=== PATIENT | male | born 1955 | race Caucasian/White ===

== ENCOUNTER → 2017-04-09 | Outpatient (REF) ==
--- NOTE | 2017-04-09 10:28 | REP ---
Left ankle four views: There are no comparisons. There are accessory ossicles distal to the tip of the fibula. There is a calcification posterior to the talus, likely an os trigonum. Mineralization and joint spaces are normal. The mortise is symmetric. There is no acute fracture or dislocation. Impression: Accessory ossicles. Otherwise, negative left ankle. Signed by Emeterio Bush MD 04/09/2017 10:19 A
--- NOTE | 2017-04-09 10:29 | REP ---
LUMBOSACRAL SPINE: AP and lateral views of the lumbosacral spine performed with three total views obtained. There is no compression fracture or malalignment with normal lumbar lordosis. There is mild diffuse spurring. There is slight disc space narrowing and subchondral sclerosis at L4-5. There is moderate narrowing with subchondral sclerosis and vacuum at L5-S1. There is sclerosis at the posterior facet joints. The posterior elements are intact. Vascular calcifications are seen in the pelvis. IMPRESSION: Degenerative changes as above. Signed by Emeterio No MD 04/09/2017 05:08 P
== END ==
LOC: M SMT 09:52
PROVIDERS: ATTEND Internal Medicine
DX: Z02.9 Encounter for administrative examinations, unspecified (principal)

== ENCOUNTER 2019-08-27 18:39 | Inpatient (IN) | payer MEDICARE, OTHER ==
[~2019-08-27] VITALS: Ht 172.7 cm; Wt 65.7 kg
[2019-08-27] MEDS ORDERED: ATOR40TA75 (18:59)
[2019-08-27] MEDS ORDERED: LISI-1046 (18:59)
[2019-08-27] MEDS ORDERED: METO1TAB7 (18:59)
[2019-08-27] MEDS ORDERED: CLOP75TA2 (18:59)
[2019-08-27] MEDS ORDERED: GABA-843 (18:59)
[2019-08-27] MEDS ORDERED: ATORVASTATIN 20 MG TAB PO SCH (21:00)
[2019-08-27 21:03] LABS: BASO # 0.1 10^3/uL (0.0-0.2); BASO % 1.2 % (0.0-1.0); EOS # 1.3 10^3/uL (0.0-0.5); EOS % 16.4 % (0.0-3.0); HEMATOCRIT 39.6 % (42.0-52.0); HEMOGLOBIN 12.7 g/dl (13.5-17.5); LYMPH # 1.5 10^3/uL (1.5-5.0); LYMPH % 18.5 % (24.0-44.0); MEAN CORPUSCULAR HEMOGLOBIN 29.7 pg (27.0-33.0); MEAN CORPUSCULAR HGB CONC 32.1 g/dl (32.0-36.5); MEAN CORPUSCULAR VOLUME 92.7 fl (80.0-96.0); MONO # 0.6 10^3/uL (0.0-0.8); MONO % 7.5 % (0.0-5.0); NEUTROPHILS # 4.6 10^3/uL (1.5-8.5); PLATELET COUNT, AUTOMATED 220 10^3/uL (150-450); RED BLOOD COUNT 4.27 10^6/uL (4.30-6.10); WHITE BLOOD COUNT 8.1 10^3/uL (4.0-10.0)
[2019-08-27] MEDS ORDERED: ISOVUE-370 76% 100ML VIAL (Q9967) As Ordered ONE (21:10)
[2019-08-27 21:20] LABS: INR 1.04; PARTIAL THROMBOPLASTIN TIME 33.5 SECONDS (25.0-38.4); PROTHROMBIN TIME 13.3 SECONDS (11.8-14.0)
--- NOTE | 2019-08-27 22:59 | REPVR ---
PROCEDURE INFORMATION: Exam: CTA Left Lower Extremity With Contrast Exam date and time: 08/27/2019 9:48 PM Age: 64 years old Clinical indication: Other: Blue toes; Additional info: B/l blue toes ascending up foot. Assess for prox occlusion TECHNIQUE: Imaging protocol: Computed tomographic angiography of the Left lower extremity with intravenous contrast. 3D rendering: MIP and/or 3D reconstructed images were created by the technologist. Radiation optimization: All CT scans at this facility use at least one of these dose optimization techniques: automated exposure control; mA and/or kV adjustment per patient size (includes targeted exams where dose is matched to clinical indication); or iterative reconstruction. Contrast material: ISOVUE 370; Contrast volume: 100 ml; Contrast route: IV; COMPARISON: No relevant prior studies available. FINDINGS: Right lower extremity vasculature: Moderate calcified and noncalcified atherosclerosis in the infrarenal abdominal aorta, common, internal and external iliac arteries with no high-grade narrowing or occlusion. Mild atherosclerosis within the deep femoral artery. Mild scattered atherosclerotic plaque within the superficial femoral artery, popliteal artery, and 3 vessel runoff. The anterior and posterior tibial arteries are patent through the ankle. The peroneal artery loses opacification in the distal lower extremity from slow flow or thrombus. Left lower extremity vasculature: Moderate calcified and noncalcified atherosclerosis of the infrarenal abdominal aorta, common, internal and external iliac arteries with no high-grade narrowing or occlusion. Atherosclerotic narrowing of the origin of the superficial femoral artery, although with only mild luminal narrowing. Mild atherosclerosis along the deep femoral artery. Mild scattered atherosclerotic calcifications along the superficial femoral and popliteal arteries with multiple areas of mild narrowing. The anterior and posterior tibial arteries are patent through the ankle. There is loss of enhancement of the peroneal artery in the distal lower extremity from slow flow or thrombus. Stomach and bowel: Colonic diverticulosis without evidence of diverticulitis. Bladder: Large, nodular prostate measuring up to 5.7 cm diameter with nodular excrescence superiorly measuring 3 cm distorting the inferior wall of the urinary bladder. Bones/joints: No acute fracture. No dislocation. Soft tissues: Unremarkable. IMPRESSION: Loss of opacification of the distal aspect of the bilateral peroneal arteries from slow flow or thrombus. Otherwise, there is no high-grade narrowing or occlusion of either lower extremity major arterial vessels with [id number] atherosclerotic disease as described. Notes that the vessels within the feet are poorly visualized given imaging technique required for proximal occlusion evaluation. Large, nodular prostate impressing upon the urinary bladder. Correlate with exam and age-appropriate prostate cancer screening. Electronically signed by: Hemanth Medeiros On 08/27/2019 22:58:54 PM
[2019-08-27] MEDS ORDERED: HEPARIN DRIP 25,000 UNITS in IV 1 EA IV SCH (23:42)
[2019-08-27] MEDS ORDERED: HEPARIN SOD (PORCINE) 5000 UNITS/ML VIAL IV ONE (23:45)
[2019-08-28] MEDS ORDERED: GABA-843 PO (00:32)
[2019-08-28] MEDS ORDERED: METO1TAB7 PO (00:32)
[2019-08-28] MEDS ORDERED: CLOP75TA2 PO (00:32)
[2019-08-28] MEDS ORDERED: ATOR40TA75 PO (00:32)
[2019-08-28] MEDS ORDERED: MAALOX 30 ML SUSP *UDC PO PRN (01:15)
[2019-08-28] MEDS ORDERED: MOM 30ML SUSPENSION UDC PO PRN (01:15)
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
[2019-08-28] MEDS: GABAPENTIN 300 MG CAP PO SCH ×2 (02:18→20:32)
[2019-08-28] MEDS: ACETAMINOPHEN TAB 650MG DOSE (2X325MG) PO PRN ×3 (02:22→15:43)
[2019-08-28] MEDS ORDERED: GABAPENTIN 100 MG CAP PO ONE (03:30)
[2019-08-28] MEDS ORDERED: IBUPROFEN 400 MG TAB PO ONE (03:30)
[2019-08-28 04:05] LABS: HEMATOCRIT 39.6 % (42.0-52.0); HEMOGLOBIN 12.7 g/dl (13.5-17.5); MEAN CORPUSCULAR HEMOGLOBIN 29.6 pg (27.0-33.0); MEAN CORPUSCULAR HGB CONC 32.1 g/dl (32.0-36.5); MEAN CORPUSCULAR VOLUME 92.3 fl (80.0-96.0); PLATELET COUNT, AUTOMATED 220 10^3/uL (150-450); RED BLOOD COUNT 4.29 10^6/uL (4.30-6.10)
[2019-08-28 04:24] LABS: BLOOD UREA NITROGEN 13 MG/DL (7-18); CALCIUM LEVEL 8.1 MG/DL (8.8-10.2); CARBON DIOXIDE LEVEL 23 MEQ/L (21-32); CHLORIDE LEVEL 111 MEQ/L (98-107); CREATININE FOR GFR 1.01 MG/DL (0.70-1.30); GLOMERULAR FILTRATION RATE > 60.0 (>49); GLUCOSE, FASTING 102 MG/DL (70-100); POTASSIUM SERUM 3.9 MEQ/L (3.5-5.1); SODIUM LEVEL 141 MEQ/L (136-145)
[2019-08-28 04:32] VITALS: BP 178/90
[2019-08-28] MEDS ORDERED: HEPARIN SOD (PORCINE) 5000 UNITS/ML VIAL IV PRN (06:15)
[2019-08-28 06:39] LABS: HEMATOCRIT 38.1 % (42.0-52.0); HEMOGLOBIN 12.6 g/dl (13.5-17.5); MEAN CORPUSCULAR HEMOGLOBIN 30.1 pg (27.0-33.0); MEAN CORPUSCULAR HGB CONC 33.1 g/dl (32.0-36.5); MEAN CORPUSCULAR VOLUME 91.1 fl (80.0-96.0); PLATELET COUNT, AUTOMATED 216 10^3/uL (150-450); RED BLOOD COUNT 4.18 10^6/uL (4.30-6.10); WHITE BLOOD COUNT 8.6 10^3/uL (4.0-10.0)
[2019-08-28 07:50] LABS: FERRITIN 140 NG/ML (26-388); IRON (FE) 87 UG/DL (65-175); TOTAL IRON BINDING CAPACITY 281 UG/DL (250-450)
[2019-08-28 08:00] VITALS: BP 120/72
[2019-08-28] MEDS ORDERED: ISOVUE-370 76% 100ML VIAL (Q9967) As Ordered ONE (08:37)
[2019-08-28 09:23] LABS: FOLATE 13.7 NG/ML (>5.4); VITAMIN B12 LEVEL 284 PG/ML (247-911)
[2019-08-28] MEDS: CLOPIDOGREL 75 MG TAB PO SCH (10:00)
[2019-08-28] MEDS: METOPROLOL SUCC (TopROL XL) 50MG **XL** TAB PO SCH (10:00)
--- NOTE | 2019-08-28 10:08 | REP ---
CT thoracic aortic and abdominal aortic angiogram: With IV contrast. History: Assess thoracoabdominal aorta. Question source of emboli. Blue toe syndrome. Comparison studies: No comparison study. Contrast dose: 100 ML of Isovue [address] technique: Helical scanning is acquired and overlapping 1.5 mm and contiguous 3 mm axial images are reformatted. In addition, maximum intensity projection and multiplanar re-formation images are generated in sagittal and coronal imaging projections. CT pulmonary angiographic findings: There is some linear plate-like atelectasis in the right lower lobe versus linear fibrosis. No pulmonary nodule or infiltrate is seen. No lung mass lesion is observed. There are small subpleural nodules along the major fissure in the right lower lobe infrahilar region on the right which have a benign appearance. There are scattered mediastinal and hilar lymph nodes which are not enlarged. There is a cyst in the left lobe of the liver. An accessory splenule is seen. No adrenal lesion is observed. No pleural or pericardial effusion is seen. There is no filling defect in the pulmonary arterial tree to suggest pulmonary embolus. There is irregular atherosclerotic plaquing in the mid descending thoracic aorta along its lateral margin. No aneurysm or dissection is seen. Irregular atherosclerotic plaquing is seen in the infrarenal abdominal aorta as well with mild luminal narrowing and luminal irregularity. 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 And a singular nonstenotic left renal artery is noted. Celiac, superior mesenteric artery origins are unremarkable. Impression: No CT evidence of pulmonary embolus. No evidence of aortic dissection or aneurysm. There are areas of fairly irregular plaquing however in the mid descending thoracic aorta and in the infrarenal abdominal aorta. Electronically Signed by Nain Herrmann MD 08/28/2019 10:42 A
[2019-08-28] MEDS: NS 1,000 ML IV SCH ×2 (10:26→20:32)
[2019-08-28] MEDS ORDERED: ASPIRIN 81 MG ENTERIC TAB PO ONE (11:45)
[2019-08-28 12:00] VITALS: BP 144/86
[2019-08-28] MEDS ORDERED: PERCOCET 5MG/325MG TAB PO PRN (12:00)
[2019-08-28] MEDS ORDERED: ATORVASTATIN 20 MG TAB PO ONE (12:00)
[2019-08-28 16:00] VITALS: BP 152/80
[2019-08-28 20:00] VITALS: BP 146/89
[2019-08-28] MEDS ORDERED: ATORVASTATIN 20 MG TAB PO SCH (21:00)
--- NOTE | 2019-08-28 22:34 | ECHO ---
DATE OF PROCEDURE: 08/28/2019 REFERRING PHYSICIAN: Dr. Freya Hinds INDICATION: Systemic emboli. HEIGHT: 173 cm WEIGHT: 68 kg 2D MEASUREMENTS: Aortic annulus: 2.3 cm Aortic root: 3.3 cm Left atrium: 3.2 cm Ventricular septum: 1.06 cm Posterior wall: 1.09 cm Left ventricle diastole: 4.2 cm DOPPLER MEASUREMENTS: Aortic valve velocity: 156 cm/s LVOT velocity: 84.9 cm/s LVOT VTI: 19.1 cm No aortic regurgitation. Very mild mitral regurgitation. Mitral E velocity: 76.7 cm/s Mitral A velocity: 55.3 cm/s Mitral deceleration time: 223 ms Very mild tricuspid regurgitation. No pulmonic regurgitation. MITRAL ANNULAR TISSUE DOPPLER: Mitral annular tissue Doppler was not valid because the degree of difference in angle alignment of the Doppler with the direction and movement of the annular tissue plane was more than 6 degrees. DESCRIPTION: Rhythm was sinus. Image quality was fair. Frequent premature ventricular contractions (PVCs) were observed. No pericardial effusion. CONCLUSIONS: 1. Normal left ventricle internal dimensions and wall thickness. Normal regional left ventricular (LV) wall motion and wall thickening. Normal LV systolic function. Normal LV diastolic function. 2. Moderate aortic valve sclerosis of a 3-cusp aortic valve. No aortic regurgitation or stenosis. 3. Otherwise normal appearing echocardiogram Doppler findings.
[2019-08-29] VITALS: BP 151/85
[2019-08-29 04:00] VITALS: BP 144/84
[2019-08-29] MEDS: ACETAMINOPHEN TAB 650MG DOSE (2X325MG) PO PRN (04:56)
[2019-08-29 05:59] LABS: HEMATOCRIT 35.7 % (42.0-52.0); HEMOGLOBIN 11.7 g/dl (13.5-17.5); MEAN CORPUSCULAR HEMOGLOBIN 30.4 pg (27.0-33.0); MEAN CORPUSCULAR HGB CONC 32.8 g/dl (32.0-36.5); MEAN CORPUSCULAR VOLUME 92.7 fl (80.0-96.0); PLATELET COUNT, AUTOMATED 184 10^3/uL (150-450); RED BLOOD COUNT 3.85 10^6/uL (4.30-6.10); WHITE BLOOD COUNT 8.5 10^3/uL (4.0-10.0)
[2019-08-29 06:29] LABS: BLOOD UREA NITROGEN 11 MG/DL (7-18); CALCIUM LEVEL 7.9 MG/DL (8.8-10.2); CARBON DIOXIDE LEVEL 24 MEQ/L (21-32); CHLORIDE LEVEL 114 MEQ/L (98-107); CREATININE FOR GFR 1.02 MG/DL (0.70-1.30); GLOMERULAR FILTRATION RATE > 60.0 (>49); GLUCOSE, FASTING 111 MG/DL (70-100); SODIUM LEVEL 144 MEQ/L (136-145)
[2019-08-29 08:00] VITALS: BP 126/90
[2019-08-29 08:53] VITALS: BP 126/90
[2019-08-29] MEDS: CLOPIDOGREL 75 MG TAB PO SCH (08:53)
[2019-08-29] MEDS: METOPROLOL SUCC (TopROL XL) 50MG **XL** TAB PO SCH (08:53)
[2019-08-29] MEDS ORDERED: ASPIRIN 81 MG ENTERIC TAB PO SCH (09:00)
[2019-08-29] MEDS ORDERED: ATOR1TAB21 PO (12:36)
[2019-08-29] MEDS ORDERED: ASPI81TAEC PO (12:36)
[2019-08-29] MEDS ORDERED: CYANOCOBALAMIN 1,000 MCG/ML VIAL (J3420) IM ONE (14:00)
--- NOTE | 2019-08-30 20:57 | DS.PDOC ---
Discharge Summary General Date of Admission Aug 28, 2019 at 00:31 Date of Discharge 08/29/19 Attending Physician: ONEIL ADAMS MD Discharge Summary PROCEDURES PERFORMED DURING STAY: None. ADMITTING DIAGNOSES: 1. Blue toe syndrome. DISCHARGE DIAGNOSES: 1. Blue toe syndrome. COMPLICATIONS/CHIEF COMPLAINT: Blue Toe Syndrome Of Both Lower Extremities. HISTORY OF PRESENT ILLNESS: 64-year-old male with past medical history of coronary artery disease status post AL one month ago requiring 2 coronary stents, presents with progressive discoloration of his toes, which was likely due to atherosclerotic emboli. He underwent CTA of the chest and abdomen which showed irregular cholesterol plaques in the descending thoracic aorta and proximal abdominal aorta. Patient was managed medically with continuation of aspirin, Plavix, and increasing dose of his statin along with pain control. He continued to have improvement discoloration and pain in the toes, case discussed with vascular surgery over the phone who recommended conservative management and if patient's symptoms worsen that require surgical intervention, then the patient should follow up with [facility]. Patient is clinically, he would be stable for discharge and outpatient follow-up. HOSPITAL COURSE: As above. DISCHARGE MEDICATIONS: Please see below. ALLERGIES: Please see below. PHYSICAL EXAMINATION: VITAL SIGNS: Please see below. GENERAL: No distress HEENT: Normocephalic, atraumatic, moist mucous membranes NECK: Supple CARDIOVASCULAR EXAMINATION: S1, S2, no murmurs RESPIRATORY EXAMINATION: Distant, poor air movement, no wheezing ABDOMINAL EXAMINATION: Soft, nontender, nondistended, positive bowel sounds EXTREMITIES: Range of motion intact SKIN: Blue discoloration of toes in both feet with tenderness to palpation NEUROLOGICAL EXAMINATION: Alert and oriented 3, no focal deficits PSYCHIATRIC EXAMINATION: Calm and cooperative LABORATORY DATA: Please see below. IMAGING: CTA showing irregular atherosclerotic plaques and descending thoracic aorta and proximal abdominal aorta PROGNOSIS: Fair ACTIVITY: As tolerated. DIET: Cardiac DISCHARGE PLAN: Follow-up with PCP and nut picker in 1-2 weeks DISPOSITION: 01 Home, Self-Care. DISCHARGE INSTRUCTIONS: 1. As above. DISCHARGE CONDITION: Stable. TIME SPENT ON DISCHARGE: Greater than 33 minutes. Vital Signs/I&Os Vital Signs Date Time Temp Pulse Resp B/P (MAP) Pulse Ox O2 Delivery O2 Flow Rate FiO2 08/29/19 08:53 71 126/90 08/29/19 08:00 98.4 21 95 Room Air Discharge Medications Scheduled Aspirin (Aspirin EC) 81 Mg Tablet.dr, 81 MG PO DAILY Atorvastatin Calcium (Atorvastatin Calcium) 20 Mg Tablet, 80 MG PO QHS Clopidogrel Bisulfate (Clopidogrel) 75 Mg Tablet, 75 MG PO DAILY, (Reported) Gabapentin (Gabapentin) 300 Mg Capsule, 300 MG PO QHS, (Reported) HAS NOT STARTED YET Metoprolol Succinate (Metoprolol Succinate) 50 Mg Tab.er.24h, 50 MG PO DAILY, (Reported) Allergies Coded Allergies: No Known Allergies (Unverified , 08/27/19) ONEIL ADAMS MD Aug 30, 2019 20:57
== END 2019-08-29 15:05 | disposition home or self-care (01) | DRG 301 ==
LOC: M ED 18:39 → M ED INP 08-28 00:31 → ENRESERV 08-28 04:06 → M PCU 08-28 04:32
PROVIDERS: ADMIT Internal Medicine; ATTEND Internal Medicine
DX: I75.023 Atheroembolism of bilateral lower extremities (principal); I25.10 Atherosclerotic heart disease of native coronary artery without angina pectoris; I25.2 Old myocardial infarction; Z79.82 Long term (current) use of aspirin; Z79.899 Other long term (current) drug therapy; Z87.891 Personal history of nicotine dependence; N40.0 Benign prostatic hyperplasia without lower urinary tract symptoms; Z95.2 Presence of prosthetic heart valve; D64.9 Anemia, unspecified

== ENCOUNTER 2025-06-07 11:40 | Observation (INO) | payer MEDICAID, MEDICARE, OTHER ==
[~2025-06-07] VITALS: Ht 172.7 cm; Wt 58.2 kg
[~2025-06-07 11:40] MED LIST: ASPI-569 PO; ATOR1TAB21 PO; ATOR40TA75; ATOR40TA75 PO; CLOP75TA2; CLOP75TA2 PO; GABA-1172; GABA-1172 PO; LISI2.5T9; METO1TAB7; METO1TAB7 PO
[2025-06-07] MEDS ORDERED: DILT120C31 PO (12:05)
[2025-06-07] MEDS ORDERED: ELIQ5TAB PO (12:05)
[2025-06-07] MEDS ORDERED: LEVO1TAB40 (12:05)
[2025-06-07] MEDS ORDERED: BENZ-18 PO (12:05)
[2025-06-07 13:10] LABS: BASO # 0.1 10^3/uL (0.0-0.2); BASO % 0.5 % (0.0-1.0); EOS # 0.4 10^3/uL (0.0-0.5); EOS % 2.9 % (0.0-3.0); LYMPH # 0.9 10^3/uL (1.5-5.0); LYMPH % 6.8 % (24.0-44.0); MONO # 1.0 10^3/uL (0.0-0.8); MONO % 7.1 % (2.0-8.0); NEUTROPHILS # 10.9 10^3/uL (1.5-8.5); NEUTROPHILS % 82.0 % (36.0-66.0); PLATELET COUNT, AUTOMATED 562 10^3/uL (150-450)
[2025-06-07] MEDS ORDERED: MED REC IN PROGRESS XX SCH (13:35)
[2025-06-07 13:45] LABS: INR 1.08
[2025-06-07 14:04] LABS: ALT/SGPT 34 U/L (7.0-40); AST/SGOT 33 U/L (<34); CALCIUM LEVEL 8.3 MG/DL (8.3-10.6); CARBON DIOXIDE LEVEL 24 MMOL/L (20-31); CHLORIDE LEVEL 104 MMOL/L (98-107); CK-MB VALUE MASS 1.9 NG/ML (<3.6); CREATININE FOR GFR 0.90 MG/DL (0.70-1.30); GLOMERULAR FILTRATION RATE > 90.0 (>49); POTASSIUM SERUM 4.6 MMOL/L (3.5-5.1); SODIUM LEVEL 137 MMOL/L (136-145)
[2025-06-07 14:05] LABS: FREE T4 1.32 NG/DL (0.89-1.76)
[2025-06-07 14:07] LABS: CPK CREATINE PHOSPHOKINASE 72 U/L (46-171); MB/CK RELATIVE INDEX 2.63 (< OR =4)
[2025-06-07] MEDS ORDERED: CEFU1TAB22 PO (14:43)
[2025-06-07] MEDS ORDERED: AZIT-12 PO (14:44)
[2025-06-07] MEDS ORDERED: ATOR80TA59 PO (14:44)
[2025-06-07] MEDS ORDERED: MED REC COMMENT (14:46)
[2025-06-07] MEDS ORDERED: HOME MED LIST COMPLETE! XX SCH (14:50)
[2025-06-07] MEDS: cefTRIAXone SOD 1 GM in DEXTROSE 5% (D5W) ADV/MINI-BAG 50 ML IV ONE ×2 (14:57→18:22)
[2025-06-07] MEDS: AZITHROMYCIN 250 MG TABLET PO ONE (14:57)
[2025-06-07] MEDS ORDERED: BENZONATATE 100 MG CAPSULE PO PRN (15:45)
[2025-06-07] MEDS ORDERED: IPRATROPIUM 0.5 MG/ALBUTEROL 2.5 MG INH SOL UD 3 ML NEB PRN (15:45)
[2025-06-07 16:49] LABS: C REACTIVE PROTEIN QUANTITATIV 7.26 MG/DL (<1.0); IRON (FE) 10 UG/DL (65-175); PERCENT SATURATION 5.4 % (19.7-50.0)
[2025-06-07 16:59] LABS: ERYTHROCYTE SEDIMENTATION RATE 108 mm/hr (0-20)
[2025-06-07] MEDS ORDERED: ACETAMINOPHEN 325 MG TAB PO PRN (17:20)
[2025-06-07 17:25] VITALS: BP 128/72; TEMP 97.9; O2SAT 96
[2025-06-07 17:39] LABS: COMPLEMENT C4 45.0 MG/DL (12-36)
[2025-06-07] MEDS: guaiFENesin ER TABLET 600 MG TAB PO ONE (18:23)
[2025-06-07] MEDS: IPRATROPIUM 0.5 MG/ALBUTEROL 2.5 MG INH SOL UD 3 ML NEB SCH (19:41)
[2025-06-07 20:00] VITALS: BP 124/69; TEMP 98.4; O2SAT 94
[2025-06-07 20:07] LABS: CK-MB VALUE MASS 2.0 NG/ML (<3.6)
[2025-06-07 20:09] LABS: CPK CREATINE PHOSPHOKINASE 66.0 U/L (46-171); MB/CK RELATIVE INDEX 3.03 (< OR =4)
[2025-06-07] MEDS: APIXABAN 5 MG TAB PO SCH (20:12)
[2025-06-07 20:39] LABS: KETONE, URINE AUTO RFX NEGATIVE (NEGATIVE); LEUKOCYTE ESTERASE UR AUTO RFX NEGATIVE (NEGATIVE); MUCUS, URINE RFX SMALL (NEGATIVE); NITRITE, URINE AUTO RFX NEGATIVE (NEGATIVE); RBC, URINE AUTO RFX 1 /HPF (0-3); SQUAM EPITHELIAL CELL UR AURFX 0 /HPF (0-6); WBC, URINE AUTO RFX 0 /HPF (0-3)
[2025-06-07 20:51] LABS: AMPHETAMINES LEVEL URINE NEGATIVE (NEGATIVE)
[2025-06-07 20:52] LABS: BARBITURATES URINE NEGATIVE (NEGATIVE); BENZODIAZEPINES URINE NEGATIVE (NEGATIVE); CANNABINOIDS URINE NEGATIVE (NEGATIVE); COCAINE METABOLITE URINE NEGATIVE (NEGATIVE); METHADONE URINE NEGATIVE (NEGATIVE); OPIATES URINE NEGATIVE (NEGATIVE); PHENCYCLIDINE URINE NEGATIVE (NEGATIVE)
[2025-06-08 01:47] LABS: CK-MB VALUE MASS 1.4 NG/ML (<3.6)
[2025-06-08 01:48] LABS: CPK CREATINE PHOSPHOKINASE 54.0 U/L (46-171); MB/CK RELATIVE INDEX 2.59 (< OR =4)
[2025-06-08 05:00] VITALS: BP 100/62; TEMP 98.4; O2SAT 93
[2025-06-08 06:42] LABS: BASO # 0.1 10^3/uL (0.0-0.2); BASO % 0.6 % (0.0-1.0); EOS # 0.7 10^3/uL (0.0-0.5); EOS % 5.1 % (0.0-3.0); LYMPH # 1.1 10^3/uL (1.5-5.0); LYMPH % 8.2 % (24.0-44.0); MONO # 1.2 10^3/uL (0.0-0.8); MONO % 8.9 % (2.0-8.0); NEUTROPHILS # 10.7 10^3/uL (1.5-8.5); NEUTROPHILS % 76.6 % (36.0-66.0); PLATELET COUNT, AUTOMATED 571 10^3/uL (150-450)
[2025-06-08 07:05] LABS: CALCIUM LEVEL 8.2 MG/DL (8.3-10.6); CARBON DIOXIDE LEVEL 26.0 MMOL/L (20-31); CHLORIDE LEVEL 104.0 MMOL/L (98-107); CREATININE FOR GFR 1.01 MG/DL (0.70-1.30); GLOMERULAR FILTRATION RATE 81.0 (>49); POTASSIUM SERUM 4.4 MMOL/L (3.5-5.1); SODIUM LEVEL 139.0 MMOL/L (136-145)
[2025-06-08] MEDS: ATORVASTATIN 20 MG TAB PO SCH (08:29)
[2025-06-08] MEDS: guaiFENesin ER TABLET 600 MG TAB PO SCH (08:29)
[2025-06-08] MEDS: CLOPIDOGREL 75 MG TAB PO SCH (08:29)
[2025-06-08] MEDS: OMEPRAZOLE 20MG CAP PO SCH (08:30)
[2025-06-08 09:00] VITALS: BP 99/56
[2025-06-08] MEDS ORDERED: AZITHROMYCIN 250 MG TABLET PO SCH (09:00)
[2025-06-08] MEDS: dilTIAZem 120 MG **CD** CAPSULE PO SCH (09:00)
[2025-06-08] MEDS ORDERED: CEFD300CAP PO (09:01)
[2025-06-08] MEDS ORDERED: DOXY100C3 PO (09:01)
[2025-06-08 12:00] VITALS: BP 103/57; TEMP 98.6; O2SAT 95
[2025-06-08] MEDS ORDERED: cefTRIAXone SOD 2 GM in DEXTROSE 5% (D5W) ADV/MINI-BAG 50 ML IV SCH (16:00)
[2025-06-10 20:27] LABS: URINE STREP PNEUMONIAE ANTIGEN Not Detected (Not Detected)
[2025-06-11 15:52] LABS: SOLUBLE TRANSFERRIN RECEPTOR 1.10 mg/L (0.76-1.76)
== END 2025-06-08 16:20 | disposition home or self-care (01) ==
LOC: M ED 11:40 → INTOOBSV 14:49 → M ED INP 14:49 → EEVIPCON 14:49 → M MS4PR 17:26
PROVIDERS: ADMIT General Practice; ATTEND General Practice
DX: J18.9 Pneumonia, unspecified organism (principal); R09.3 Abnormal sputum; D64.9 Anemia, unspecified; D75.838 Other thrombocytosis; E88.09 Other disorders of plasma-protein metabolism, not elsewhere classified; F17.210 Nicotine dependence, cigarettes, uncomplicated; R06.09 Other forms of dyspnea; I25.10 Atherosclerotic heart disease of native coronary artery without angina pectoris; Z98.61 Coronary angioplasty status; M21.372 Foot drop, left foot; I10 Essential (primary) hypertension; E78.5 Hyperlipidemia, unspecified; Z79.01 Long term (current) use of anticoagulants; Z79.899 Other long term (current) drug therapy; Z79.2 Long term (current) use of antibiotics; L02.612 Cutaneous abscess of left foot
CPT/HCPCS: 36415; 71046; 80048; 80076; 80307; 81001; 82550; 82553; 82728; 82784; 83550; 83605; 83880; 84145; 84238; 84439; 84443; 84484; 85025; 85046; 85610; 85652; 85730; 86036; 86038; 86140; 86160; 86162; 86738; 87040; 87070; 87077; 87205; 87449; 87486; 87581; 87633; 87641; 87798; 87899; 93005; 93041; 93306; 94640; 94760; 96365; 96366; 99285; G0378; J0696

== ENCOUNTER 2025-07-13 08:42 | Inpatient (IN) | payer MEDICARE ==
[~2025-07-13] VITALS: Ht 172.7 cm; Wt 56.4 kg
[~2025-07-13 08:42] MED LIST changes: +ATOR80TA59 PO; +AZIT-12 PO; +BENZ-18 PO; +CEFD300CAP PO; +CEFU1TAB22 PO; +DILT120C31 PO; +DOXY100C3 PO; +ELIQ5TAB PO; +LEVO1TAB40; +MED REC COMMENT
[2025-07-13 09:33] LABS: VENOUS BASE EXCESS -1.0 (-2.0-2.0); VENOUS HCO3 24.7 MMOL/L (23.0-27.0); VENOUS O2 SATURATION 64.2 % (60.0-80.0); VENOUS PARTIAL PRESSURE CO2 44.6 mmHg (38.0-50.0); VENOUS PARTIAL PRESSURE O2 33.8 mmHg (30.0-50.0); VENOUS PH 7.361 UNITS (7.330-7.430); VENOUS STANDARD HCO3 22.9 MMOL/L; VENOUS TOTAL CO2 26.1 MMOL/L (24.0-28.0)
[2025-07-13 09:40] LABS: BASO # 0.1 10^3/uL (0.0-0.2); BASO % 0.9 % (0.0-1.0); EOS # 0.7 10^3/uL (0.0-0.5); EOS % 6.4 % (0.0-3.0); LYMPH # 1.1 10^3/uL (1.5-5.0); LYMPH % 10.1 % (24.0-44.0); MONO # 1.0 10^3/uL (0.0-0.8); MONO % 9.1 % (2.0-8.0); NEUTROPHILS # 7.6 10^3/uL (1.5-8.5); NEUTROPHILS % 73.2 % (36.0-66.0); PLATELET COUNT, AUTOMATED 373 10^3/uL (150-450)
[2025-07-13] MEDS: IPRATROPIUM 0.5 MG/ALBUTEROL 2.5 MG INH SOL UD 3 ML NEB ONE (09:45)
[2025-07-13] MEDS ORDERED: ASPI81TA26 PO (09:45)
[2025-07-13] MEDS ORDERED: KP F1200 PO (09:48)
[2025-07-13] MEDS ORDERED: VITA-158 PO (09:48)
[2025-07-13] MEDS ORDERED: MULT-40 PO (09:48)
[2025-07-13] MEDS ORDERED: VITA100066 PO (09:48)
[2025-07-13] MEDS ORDERED: HOME MED LIST COMPLETE! XX SCH (09:50)
[2025-07-13 10:13] LABS: CK-MB VALUE MASS 2.0 NG/ML (<3.6)
[2025-07-13 10:15] LABS: CPK CREATINE PHOSPHOKINASE 93.0 U/L (46-171); MB/CK RELATIVE INDEX 2.15 (< OR =4)
[2025-07-13 10:16] LABS: ALT/SGPT 24.0 U/L (7.0-40); AST/SGOT 25.0 U/L (<34); CALCIUM LEVEL 8.8 MG/DL (8.3-10.6); CARBON DIOXIDE LEVEL 25.0 MMOL/L (20-31); CHLORIDE LEVEL 106.0 MMOL/L (98-107); CREATININE FOR GFR 0.98 MG/DL (0.70-1.30); GLOMERULAR FILTRATION RATE 84.0 (>49); POTASSIUM SERUM 4.0 MMOL/L (3.5-5.1); SODIUM LEVEL 141.0 MMOL/L (136-145)
[2025-07-13 10:18] LABS: THYROXINE (T4) 12.0 UG/DL (4.5-10.9)
[2025-07-13] MEDS ORDERED: ISOVUE-370 76% 100 ML VIAL As Ordered ONE (11:16)
[2025-07-13] MEDS: ASCORBIC ACID 500 MG TAB PO SCH (12:29)
[2025-07-13] MEDS: dilTIAZem 120 MG **CD** CAPSULE PO SCH (12:29)
[2025-07-13] MEDS: ATORVASTATIN 20 MG TAB PO SCH (12:29)
[2025-07-13] MEDS ORDERED: IPRATROPIUM 0.5 MG/ALBUTEROL 2.5 MG INH SOL UD 3 ML NEB PRN (12:50)
[2025-07-13] MEDS: cefTRIAXone SOD 1 GM in DEXTROSE 5% (D5W) ADV/MINI-BAG 50 ML IV SCH (14:06)
[2025-07-13] MEDS: DOXYCYCLINE HYCLATE 100 MG TABLET PO SCH (14:06)
[2025-07-13 15:32] VITALS: BP 143/86; TEMP 98.1; O2SAT 91
[2025-07-13 20:34] VITALS: BP 125/73; TEMP 98.9; O2SAT 92
[2025-07-14 04:50] VITALS: BP 127/75; TEMP 98.2; O2SAT 90; O2SAT 91
[2025-07-14 05:56] LABS: PLATELET COUNT, AUTOMATED 369 10^3/uL (150-450)
[2025-07-14 06:18] LABS: CALCIUM LEVEL 8.4 MG/DL (8.3-10.6); CARBON DIOXIDE LEVEL 26 MMOL/L (20-31); CHLORIDE LEVEL 106 MMOL/L (98-107); CREATININE FOR GFR 0.91 MG/DL (0.70-1.30); GLOMERULAR FILTRATION RATE > 90.0 (>49); POTASSIUM SERUM 4.3 MMOL/L (3.5-5.1); SODIUM LEVEL 139 MMOL/L (136-145)
[2025-07-14 12:00] VITALS: BP 134/66; TEMP 98.2; O2SAT 94
[2025-07-14 20:34] VITALS: BP 120/72; TEMP 98.5; O2SAT 92
[2025-07-15] VITALS (10 sets, daily range): BP systolic 99–136; BP diastolic 55–91; TEMP 98.3–99.2; O2SAT 89–93
[2025-07-15 06:32] LABS: BASO # 0.1 10^3/uL (0.0-0.2); BASO % 0.9 % (0.0-1.0); EOS # 0.4 10^3/uL (0.0-0.5); EOS % 4.7 % (0.0-3.0); LYMPH # 1.3 10^3/uL (1.5-5.0); LYMPH % 14.1 % (24.0-44.0); MONO # 0.8 10^3/uL (0.0-0.8); MONO % 8.6 % (2.0-8.0); NEUTROPHILS # 6.6 10^3/uL (1.5-8.5); NEUTROPHILS % 71.3 % (36.0-66.0); PLATELET COUNT, AUTOMATED 369 10^3/uL (150-450)
[2025-07-15 06:52] LABS: INR 1.06
[2025-07-15 06:56] LABS: CALCIUM LEVEL 8.1 MG/DL (8.3-10.6); CARBON DIOXIDE LEVEL 26.0 MMOL/L (20-31); CHLORIDE LEVEL 106.0 MMOL/L (98-107); CREATININE FOR GFR 0.98 MG/DL (0.70-1.30); GLOMERULAR FILTRATION RATE 84.0 (>49); POTASSIUM SERUM 4.6 MMOL/L (3.5-5.1); SODIUM LEVEL 141.0 MMOL/L (136-145)
[2025-07-15] MEDS ORDERED: dexAMETHasone 4 MG/ML 1 ML VIAL As Ordered ONE (09:07)
[2025-07-15] MEDS ORDERED: ONDANSETRON 4MG/2ML VIAL As Ordered ONE (09:08)
[2025-07-15] MEDS ORDERED: ROCURONIUM BROMIDE 50MG/5ML VIAL As Ordered ONE (09:08)
[2025-07-15] MEDS ORDERED: SUGAMMADEX SODIUM 500 MG/5 ML VIAL As Ordered ONE (09:08)
[2025-07-15] MEDS ORDERED: LIDOCAINE 2% 100 MG/5 ML SDV (FOR ANES.) As Ordered ONE (09:08)
[2025-07-15] MEDS ORDERED: EPINEPHrine 1 MG/10 ML SYRINGE 1.5IN As Ordered ONE (10:29)
[2025-07-15] MEDS ORDERED: THROMBIN 5,000 UNITS VIAL As Ordered ONE (10:29)
[2025-07-15] MEDS ORDERED: ETOMIDATE 20 MG/10 ML VIAL As Ordered ONE (10:44)
[2025-07-15] MEDS ORDERED: MIDAZOLAM INJ 2 MG/2 ML VIAL As Ordered ONE (10:47)
[2025-07-15] MEDS ORDERED: ACETAMINOPHEN 1000MG/100ML IV BAG As Ordered ONE (11:04)
[2025-07-15] MEDS: CETACAINE SPRAY 5 GM As Ordered ONE (11:09)
[2025-07-15] MEDS ORDERED: ONDANSETRON 4MG/2ML VIAL IV PRN (12:05)
[2025-07-15] MEDS: ALBUTEROL SULFATE 2.5 MG/0.5 ML INH CONCENTRATE NEB SOLN INH ONE (12:44)
[2025-07-16 04:33] VITALS: BP 129/71; TEMP 98.1; O2SAT 96
[2025-07-16 07:11] LABS: PLATELET COUNT, AUTOMATED 375 10^3/uL (150-450)
[2025-07-16 07:39] LABS: CALCIUM LEVEL 8.8 MG/DL (8.3-10.6); CARBON DIOXIDE LEVEL 29.0 MMOL/L (20-31); CHLORIDE LEVEL 105.0 MMOL/L (98-107); CREATININE FOR GFR 1.03 MG/DL (0.70-1.30); GLOMERULAR FILTRATION RATE 79.1 (>49); POTASSIUM SERUM 4.8 MMOL/L (3.5-5.1); SODIUM LEVEL 141.0 MMOL/L (136-145)
[2025-07-16 08:47] VITALS: O2SAT 92
[2025-07-16 08:59] VITALS: O2SAT 91
[2025-07-16 09:27] VITALS: BP 134/73
[2025-07-16 12:00] VITALS: BP 134/77; TEMP 98.4; O2SAT 90
[2025-07-16] MEDS ORDERED: AMOX875T2 PO (12:43)
[2025-07-16] MEDS ORDERED: DOXY100T PO (12:43)
[2025-07-16] MEDS ORDERED: RISATAB3 PO (12:43)
[2025-07-16] MEDS: ASPIRIN 81 MG ENTERIC TABLET PO SCH (12:57)
[2025-07-16] MEDS: CLOPIDOGREL 75 MG TAB PO ONE (12:57)
[2025-07-16 15:02] VITALS: BP 134/77; TEMP 98.4; O2SAT 90
== END 2025-07-16 14:00 | disposition home or self-care (01) | DRG 180 ==
LOC: M ED 08:42 → M ED INP 11:39 → M MSPAV 15:28
PROVIDERS: ADMIT Student in an Organized Health Care Education/Training Program; ATTEND Student in an Organized Health Care Education/Training Program
PROC: 07D78ZX Extraction of Thorax Lymphatic, Via Natural or Artificial Opening Endoscopic, Diagnostic (ICD-10-PCS; 2025-07-15)
PROC: 0BDC8ZX Extraction of Right Upper Lung Lobe, Via Natural or Artificial Opening Endoscopic, Diagnostic (ICD-10-PCS; principal; 2025-07-15 10:15)
DX: C34.11 Malignant neoplasm of upper lobe, right bronchus or lung (principal); J18.9 Pneumonia, unspecified organism; J98.19 Other pulmonary collapse; C77.1 Secondary and unspecified malignant neoplasm of intrathoracic lymph nodes; I25.10 Atherosclerotic heart disease of native coronary artery without angina pectoris; Z95.5 Presence of coronary angioplasty implant and graft; I10 Essential (primary) hypertension; E78.5 Hyperlipidemia, unspecified; M21.372 Foot drop, left foot; Z90.49 Acquired absence of other specified parts of digestive tract; Z87.891 Personal history of nicotine dependence; Z79.82 Long term (current) use of aspirin; Z79.899 Other long term (current) drug therapy

== ENCOUNTER 2025-07-21 07:52 | Outpatient (RCR) | payer MEDICARE ==
[~2025-07-21 07:52] MED LIST changes: +AMOX875T2 PO; +ASPI81TA26 PO; +DOXY100T PO; +KP F1200 PO; +MULT-40 PO; +RISATAB3 PO; +VITA-158 PO; +VITA100066 PO
== END 2025-07-25 ==
LOC: M ONCR 07:52
PROVIDERS: ATTEND General Practice
DX: Z51.0 Encounter for antineoplastic radiation therapy (principal); C34.11 Malignant neoplasm of upper lobe, right bronchus or lung

== ENCOUNTER → 2025-08-03 | Outpatient (CLI) | payer MEDICARE | LOC: M PLARAD 09:47 | PROVIDERS: ATTEND General Practice | DX: C34.11 Malignant neoplasm of upper lobe, right bronchus or lung (principal) | CPT/HCPCS: 78815; A9552 ==

== ENCOUNTER → 2025-08-03 | Outpatient (CLI) | payer MEDICARE ==
[~2025-08-03] MED LIST changes: +ISOVUE-370 76% 100 ML VIAL ONE
== END ==
LOC: M PLAIMG 13:33
PROVIDERS: ATTEND General Practice
DX: C34.11 Malignant neoplasm of upper lobe, right bronchus or lung (principal)
CPT/HCPCS: 70470; Q9967

== ENCOUNTER → 2025-08-09 | Outpatient (CLI) | payer MEDICARE ==
[~2025-08-09] MED LIST changes: -ISOVUE-370 76% 100 ML VIAL ONE; +LIDOCAINE 1% MDV 20 ML VIAL SC SCH; +MIDAZOLAM INJ 2 MG/2 ML VIAL IV PRN
[2025-08-09 13:15] VITALS: TEMP 98.7
[2025-08-09] MEDS: NS (Normal Saline) 0.9% 1,000 ML IV SCH (14:26)
[2025-08-09] MEDS: ceFAZolin SODIUM 2 GM in DEXTROSE 5% (D5W) ADV/MINI-BAG 50 ML IV ONE (14:26)
[2025-08-09 15:25] VITALS: BP 150/83; O2SAT 99
== END ==
LOC: M IRPRO 12:32
PROVIDERS: ATTEND Internal Medicine Medical Oncology
DX: C34.11 Malignant neoplasm of upper lobe, right bronchus or lung (principal); Z53.8 Procedure and treatment not carried out for other reasons
CPT/HCPCS: 36561; 36569; C1751; J0688; J2250; J3010

== ENCOUNTER → 2025-08-11 | Outpatient (CLI) | payer MEDICARE ==
[~2025-08-11] MED LIST changes: -LIDOCAINE 1% MDV 20 ML VIAL SC SCH; -MIDAZOLAM INJ 2 MG/2 ML VIAL IV PRN
== END ==
LOC: M ONCM 09:50
PROVIDERS: ATTEND Dietitian, Registered
DX: Z71.3 Dietary counseling and surveillance (principal); C34.90 Malignant neoplasm of unspecified part of unspecified bronchus or lung; Z68.20 Body mass index [BMI] 20.0-20.9, adult

== ENCOUNTER 2025-08-23 10:02 | Outpatient (RCR) | payer MEDICARE ==
[2025-08-30] MEDS ORDERED: ONDA-84 PO (15:40)
== END 2025-08-25 ==
LOC: M ONCR 10:02
PROVIDERS: ATTEND General Practice
DX: Z51.0 Encounter for antineoplastic radiation therapy (principal); C34.11 Malignant neoplasm of upper lobe, right bronchus or lung